=== PATIENT | female | born 1935 | race Caucasian/White ===

== ENCOUNTER 2016-08-10 12:09 | Day surgery (SDC) | payer OTHER ==
--- NOTE | ~2016-08-10 | EGD ---
EGD REPORT [facility] [address] [address] NAME: DOTTIE MATTSON : 33 STATUS : REG [facility]#: [id number] AGE: 81 ADM/REG DATE : 08/10/16 MR#: [id number] REPORT SERV DATE: 08/10/16 DICTATED BY: IFRAH PRIEST DATE: 08/10/16 REPORT STATUS : Draft TRANSCRIBED BY: [facility] DATE: 08/10/16 Endoscopy Center Patient Name: Dottie Mattson Date of : 1935 Attending MD: IFRAH PRIEST, Procedure Date No Time: 08/10/2016 Procedure: Upper GI endoscopy Indications: Epigastric abdominal pain Referring MD: Bong Weber Medicines: Monitored Anesthesia Care Complications: No immediate complications. Estimated blood loss: None. Procedure: Pre-Anesthesia Assessment: - ASA Grade Assessment: III - A patient with severe systemic disease. After obtaining informed consent, the endoscope was passed under direct vision. Throughout the procedure, the patient's blood pressure, pulse, and oxygen saturations were monitored continuously. The GIF [id number] was introduced through the mouth, and advanced to the second part of duodenum. The upper GI endoscopy was accomplished without difficulty. The patient tolerated the procedure well. Findings: The esophagus was normal. One non-bleeding cratered gastric ulcer was found in the gastric antrum. The lesion was 12 mm in largest dimension. Biopsies were taken with a cold forceps for histology. Verification of patient identification for the specimen was done. Estimated blood loss was minimal. Patchy moderate inflammation characterized by erosions was found in the gastric antrum. Biopsies were taken with a cold forceps for histology. Verification of patient identification for the specimen was done. Estimated blood loss was minimal. Few non-bleeding superficial gastric ulcers with no stigmata of bleeding were found in the gastric body. The largest lesion was 5 mm in largest dimension. Biopsies were taken with a cold forceps for histology. Verification of patient identification for the specimen was done. Estimated blood loss was minimal. The cardia and gastric fundus were normal on retroflexion. The examined duodenum was normal. Impression: - Normal esophagus. - Gastric ulcer with clean base. Biopsied. - Gastritis. Biopsied. - Gastric ulcers with clean base. Biopsied. EGD REPORT [address] [address] NAME: DOTTIE MATTSON : 33 STATUS : REG [facility] PAT#: [id number] AGE: 81 ADM/REG DATE : 08/10/16 MR#: [id number] REPORT SERV DATE: 08/10/16 DICTATED BY: IFRAH PRIEST DATE: 08/10/16 REPORT STATUS : Draft TRANSCRIBED BY: [email or web address] DATE: 08/10/16 - Normal examined duodenum. Recommendation: - Patient has a contact number available for emergencies. The signs and symptoms of potential delayed complications were discussed with the patient. Return to normal activities tomorrow. Written discharge instructions were provided to the patient. - Return to previous diet. - Continue present medications. - Use Prilosec (omeprazole) 40 mg PO daily. - No meloxicam, ibuprofen, naproxen, or other non-steroidal anti-inflammatory drugs. - Await pathology results. Procedure Code(s): --- Professional --- 42379, Esophagogastroduodenoscopy, flexible, transoral; with biopsy, single or multiple Diagnosis Code(s): --- Professional --- K25.9, Gastric ulcer, unspecified as acute or chronic, without hemorrhage or perforation K29.70, Gastritis, unspecified, without bleeding R10.13, Epigastric pain CPT copyright 2013 [employer]. All rights reserved. The codes documented in this report are preliminary and upon basic combatant swimmer review may be revised to meet current compliance requirements. IFRAH PRIEST, 08/10/2016 2:23 PM Number of Addenda: 0 Note Initiated On: 08/10/2016 2:03 PM Scope Withdrawal Time 0 hours 0 minutes 0 seconds
[~2016-08-10 12:09] MED LIST: ASAB PO; CRESTOR10 PO; FLEX PO; JANUVIA50 PO; LOTE20 PO; LOTE40 PO; MELATONIN5 M1 PO; METOPROLOL XL PO; MICROZIDE PO; MOBIC7.5 PO; MSCONT15 PO; NORCO1 TAB PO; NORVASC PO; PLAVIX PO; PR12.5 PO; REQUIP5 PO; REST75 PO; TOPXL50 PO; TRAZ100 PO; X5 PO; ZOCOR20 PO
== END 2016-08-10 23:59 | disposition home or self-care (01) ==
LOC: DMU 12:09
PROVIDERS: Internal Medicine Gastroenterology
PROC: 0DB68ZX Excision of Stomach, Via Natural or Artificial Opening Endoscopic, Diagnostic (ICD-10-PCS; principal; 2016-08-10 13:30)
DX: K29.50 Unspecified chronic gastritis without bleeding (principal); K25.9 Gastric ulcer, unspecified as acute or chronic, without hemorrhage or perforation; I10 Essential (primary) hypertension; E11.9 Type 2 diabetes mellitus without complications; E78.00 Pure hypercholesterolemia, unspecified; F32.9 Major depressive disorder, single episode, unspecified; M06.9 Rheumatoid arthritis, unspecified; Z88.0 Allergy status to penicillin; Z88.5 Allergy status to narcotic agent; Z79.899 Other long term (current) drug therapy; Z90.710 Acquired absence of both cervix and uterus; Z98.890 Other specified postprocedural states
CPT/HCPCS: 82962; 88305